=== PATIENT | male | born 1990 | race Caucasian/White ===

== ENCOUNTER 2016-07-24 18:49 | Emergency (ER) | payer OTHER ==
[~2016-07-24] VITALS: Ht 185.4 cm; Wt 72.6 kg
[2016-07-24 19:08] VITALS: BP 125/89
[2016-07-24] MEDS ORDERED: CLONIDINE HCL0.1 MG PO (20:11)
[2016-07-24] MEDS ORDERED: CITALOPRAM HBR40 MG PO (20:11)
[2016-07-24] MEDS ORDERED: VENTOLIN HFA18 GM INH (20:12)
[2016-07-24] MEDS ORDERED: MONTELUKAST SOD10 M1 PO (20:12)
[2016-07-24] MEDS ORDERED: SUMATRIPTAN SU100 M1 PO (20:12)
[2016-07-24 20:24] LABS: ABSOLUTE BASOPHIL COUNT 0.1 /CUMM (0.0-0.2); ABSOLUTE EOSINOPHIL COUNT 0.1 /CUMM (0.0-0.7); ABSOLUTE GRANULOCYTE CT 7.3 /CUMM (1.4-6.5); ABSOLUTE LYMPH COUNT 1.3 /CUMM (1.2-3.4); ABSOLUTE MONOCYTE COUNT 0.8 /CUMM (0.10-0.60); BASOPHIL % 0.9 % (0.0-2.0); EOSINOPHIL % 0.6 % (0-5); GRANULOCYTE % 76.5 % (42.2-75.2); MEAN CORPUSCULAR HGB CONC 33.4 G/DL (33.0-37.0); MEAN CORPUSCULAR VOLUME 89.7 FL (80.0-94.0); MEAN PLATELET VOLUME 9.6 FL (7.4-10.4); PLATELET COUNT 294 /CUMM (130-400); RBC DISTRIBUTION WIDTH 13.2 % (11.5-14.5); RED BLOOD CELL CT 5.02 /CUMM (4.70-6.10); WHITE BLOOD CELL COUNT 9.5 /CUMM (4.8-10.8)
--- NOTE | 2016-07-24 20:32 | ED HEADACHE COMPLAINT ---
History of Present Illness General Chief Complaint: Headache Stated Complaint: HEADACHES Source: family, old records Exam Limitations: clinical condition, physical impairment Vital Signs & Intake/Output Vital Signs & Intake/Output Vital Signs Date Time Temp Pulse Resp B/P B/P Pulse O2 O2 Flow FiO2 Mean Ox Delivery Rate 07/24 1908 98.5 92 18 125/89 96 Room Air Allergies Coded Allergies: NO KNOWN ALLERGIES (04/07/12) Reconcile Medications Albuterol Sulfate (Ventolin Hfa) 90 MCG HFA.AER.AD 2 PUF INH Q4-6 PRN PRN ASTHMA (Reported) Butalb/Acetaminophen/Caffeine (Fioricet 50-300-40 MG Capsule) 50 MG-300 MG-40 MG CAPSULE 1-2 TAB PO Q6P PRN headache Citalopram Hydrobromide (Citalopram HBr) 40 MG TABLET 1 TAB PO DAILY MENTAL HEALTH (Reported) Clonidine HCl 0.1 MG TABLET 1 TAB PO BID IMPULSES (Reported) Meclizine HCl 25 MG TABLET 1 TAB PO TIDPRN PRN dizziness Montelukast Sodium 10 MG TABLET 1 TAB PO DAILY ASTHMA (Reported) Scopolamine Hydrobromide (Transderm-Scop) 1.5MG/3DAY PATCH.TD.3 1 PAT TOP Q3D PRN dizziness apply to the hairless area behind 1 ear Sumatriptan Succinate 100 MG TABLET 1 TAB PO AD PRN MIGRAINES (Reported) may repeat in 2 hours; do not exceed 200 mg in 24 hours Triage Note: 26 YEAR OLD MALE TO ER WITH HIS MOTHER, PT HAS HISTORY OF SPEACIAL NEEDS AND EPILEPSY, PT HAS BEEN COMPLAINING OF SHARP HEADACHE AND N/V SINCE YESTERDAY. PT WAS SEEN AT [facility] YESTERDAY AND [facility] TODAY, PT PRESCRIBED SUMATRIPTAN TABS 100 MG AND MOM WAS TOLD TO GIVE HIM ONE PILL IF THAT DOES NOT WORK GIVE HIM ANOTHER ONE 2 HOURS LATER WHICH SHE DID WITH NO RELIEF. PT PALE , HOLDING HEAD, ALSO COMPLAINS OF FEELING DIZZY Triage Nurses Notes Reviewed? yes Onset: 1 day Duration: day(s):, constant, continues in ED Timing: recent history Quality/Severity: severe, throbbing Head Injury Location: frontal, temporal Modifying Factors: Worsens With: movement. Associated Symptoms: nausea/vomiting, dizziness HPI: 1 day prior to admission patient complained of dizziness nausea vomiting generalized headache. He was seen at walk-in prescribed IV fluids Naprosyn and Zofran. Today he was seen by his PMD prescribed sumatriptan taking 2 doses without effect. There has been no fever chills diarrhea abdominal pain chest pain cough shortness of breath dysuria rash bleeding age motor sensory function change in bowel bladder habit. Past History Travel History Traveled to [place] past 21 day No Medical History Any Pertinent Medical History? see below for history Neurological: seizure, EPILEPSY EENT: NONE Cardiovascular: NONE Respiratory: asthma Gastrointestinal: NONE Hepatic: NONE Renal: NONE Musculoskeletal: NONE Psychiatric: anxiety Endocrine: NONE Blood Disorders: NONE Cancer(s): NONE Surgical History Surgical History: non-contributory Psychosocial History What is your primary language Austrian Tobacco Use: Never used ETOH Use: denies use Illicit Drug Use: denies illicit drug use Family History Hx Contributory? No Review of Systems Review of Systems Constitutional: Reports: see HPI, malaise. Eyes: Reports: no symptoms. Ears, Nose, Throat, Mouth: Reports: no symptoms. Respiratory: Reports: no symptoms. Cardiovascular: Reports: no symptoms. Gastrointestinal/Abdominal: Reports: see HPI, nausea, vomiting. Genitourinary: Reports: no symptoms. Musculoskeletal: Reports: no symptoms. Skin: Reports: no symptoms. Neurological/Psychological: Reports: see HPI, headache. Hematologic/Endocrine: Reports: no symptoms. Endocrine: Reports: no symptoms. Immunologic/Allergic: Reports: no symptoms. All Other Systems: Reviewed and Negative Physical Exam Physical Exam General Appearance: well developed/nourished, alert, awake, anxious, severe distress, thin Head: atraumatic Eyes: Bilateral: normal appearance, PERRL, EOMI, other (nystagmus). Ears, Nose, Throat: normal pharynx, left with increased cerumen TM not visualized Neck: normal inspection, supple, full range of motion, trachea midline, no midline tenderness Respiratory: normal breath sounds, chest non-tender, no respiratory distress, quiet respiration, lungs clear Cardiovascular: regular rate/rhythm, normal peripheral pulses, norml femoral pulses equa Gastrointestinal: normal bowel sounds, soft, non-tender, no organomegaly Back: normal inspection, normal range of motion Extremities: normal inspection, normal capillary refill, normal range of motion, no edema, no ligament instability Psychiatric: awake, alert, oriented x 3 Cranial Nerves: normal hearing, normal speech, PERRL Coordination/Gait: normal gait Motor/Sensory: no motor/sensory deficits Reflexes: 2+: bicep (R), bicep (L), tricep (R), tricep (L). Skin: normal color, diaphoresis Core Measures Severe Sepsis Present: No Septic Shock Present: No Progress Differential Diagnosis: tension WISE, viral cephalgia Plan of Care: Orders Procedure Date/time Status LIPASE 07/24 2001 Complete COMPREHENSIVE METABOLIC PANEL 07/24 2001 Complete CBC WITHOUT DIFFERENTIAL 07/24 2001 Complete Laboratory Tests 07/24/16 2004: Anion Gap 18 H, Estimated GFR > 60, BUN/Creatinine Ratio 21.1, Glucose 121 H, Calcium 10.2, Total Bilirubin 1.2, AST 29, ALT 36, Alkaline Phosphatase 92, Total Protein 8.4 H, Albumin 5.1 H, Globulin 3.3, Albumin/Globulin Ratio 1.5, Lipase 21 L, CBC w Diff NO MAN DIFF REQ, RBC 5.02, MCV 89.7, MCH 30.0, RDW 13.2 , MPV 9.6, Gran % 76.5 H, Lymphocytes % 14.0 L, Monocytes % 8.0, Eosinophils % 0.6, Basophils % 0.9, Absolute Granulocytes 7.3 H, Absolute Lymphocytes 1.3, Absolute Monocytes 0.8 H, Absolute Eosinophils 0.1, Absolute Basophils 0.1, PUBS MCHC 33.4 Diagnostic Imaging: Viewed by Me: CT Scan. Discussed w/RAD: CT Scan. Radiology Impression: no acute abnormality Departure Departure Time of Disposition: 2129 Disposition: HOME OR SELF CARE Condition: Stable Clinical Impression Primary Impression: Headache Qualifiers: Headache type: unspecified Headache chronicity pattern: acute headache Intractability: not intractable Qualified Code: R51 - Headache Secondary Impressions: Vertigo Referrals: NIKI TELLEZ,ROCAEL Allen Call for neurology follow up ANISH SALGADO APRN (PCP/Family) Departure Forms: Customer Survey General Discharge Information Prescriptions: Current Visit Scripts Scopolamine Hydrobromide (Transderm-Scop) 1 PAT TOP Q3D PRN dizziness #4 PAT apply to the hairless area behind 1 ear Meclizine HCl 1 TAB PO TIDPRN PRN dizziness #30 TAB Butalb/Acetaminophen/Caffeine (Fioricet 50-300-40 MG Capsule) 1-2 TAB PO Q6P PRN headache #30 TAB
--- NOTE | 2016-07-24 20:44 | CT SCAN REPORT ---
EXAMINATION: CT HEAD WITHOUT CONTRAST CLINICAL INFORMATION: 26-year-old male patient with migraine, nausea and vomiting. COMPARISON: CT the brain 05/26/2011 and 04/08/2012. (Normal). TECHNIQUE: Contiguous axial imaging was performed from the skull base to vertex without intravenous administration of contrast. DLP: 620 mGy-cm FINDINGS: There is no evidence of acute intracranial hemorrhage or territorial infarction. No abnormal mass effect or midline shift is seen. Mcqueen to white matter differentiation is well preserved. No extra-axial fluid collections are identified. The ventricles are normal in size. There is no abnormal attenuation within the brain parenchyma. The osseous structures and soft tissues are normal. The mastoid air cells and visualized portions of the paranasal sinuses are well aerated. IMPRESSION: No acute intracranial pathology.
[2016-07-24] MEDS ORDERED: MECLIZINE HCL25 MG PO (21:34)
[2016-07-24] MEDS ORDERED: TRANSDERM-SCOP1 EACH TOP (21:34)
[2016-07-24] MEDS ORDERED: FIORICET 50-301 EACH PO (21:34)
== END 2016-07-24 22:07 ==
LOC: ERH 18:49
PROVIDERS: Emergency Medicine
DX: R42 Dizziness and giddiness (principal); R51 Headache
CPT/HCPCS: 96361; 96374; 96375; J1885; J2765